=== PATIENT | female | born 1980 | race Caucasian/White ===

== ENCOUNTER 2016-12-23 11:35 | Emergency (ER) | payer OTHER ==
[2016-12-23 11:56] VITALS: BP 117/66; PULSE 109; TEMP 98.1; BMI 24.5
--- NOTE | 2016-12-23 12:39 | PDOC ---
History of Present Illness - General Chief Complaint: Lethargy Stated Complaint: INSOMNIA Time Seen by Provider: 12/23/16 12:24 - History of Present Illness Initial Comments: 12/23/16 12:38 CHIEF COMPLAINT: insomnia HISTORY OF PRESENT ILLNESS: 36 yo 7 month F with hx of insomnia, seen multiple times in this ER for insomnia and anxiet, [facility]. She reports that she hasn't been able to sleep for one week , nor has been able to eat well. She denies any pain, vomiting, fever, chills, shortness of breath, palpitations, or vaginal bleeding. She states "maybe I am stressed" and that's why she hasn't been able to sleep. She has not seen a therapist as previously advised. PAST MEDICAL HISTORY: Denies past medical history FAMILY HISTORY: Denies SOCIAL HISTORY: Denies tobacco, alcohol, illicit drug use. SURGICAL HISTORY: Denies ALLERGIES: No known drug allergies REVIEW OF SYSTEMS General/Constitutional: Denies fever or chills. Denies weakness, weight change. HEENT: Denies change in vision. Denies ear pain or discharge. Denies sore throat. Cardiovascular: Denies chest pain or shortness of breath. Respiratory: Denies cough, wheezing, or hemoptysis. Gastrointestinal: Denies nausea, vomiting, diarrhea or constipation. Denies rectal bleeding. Genitourinary: Denies dysuria, frequency, or change in urination. Musculoskeletal: Denies joint or muscle swelling or pain. Denies neck or back pain. Skin and breasts: Denies rash or easy bruising. Neurologic: Denies headache, vertigo, loss of consciousness, or loss of sensation. Psychiatric: Anxious, insomnia. PHYSICAL EXAM General Appearance: Well-appearing, appropriately dressed. No apparent distress. HEENT: EOMI, PERRLA. No conjunctival pallor. No photophobia, scleral icterus. Neck: Supple. Trachea midline. No tenderness, rigidity, carotid bruit, stridor , lymphadenopathy, or thyromegaly. Respiratory/Chest: Lungs CTAB. No shortness of breath, chest tenderness, respiratory distress, accessory muscle use. No crackles, rales, rhonchi, stridor , wheezing, dullness Cardiovascular: RRR. S1, S2. No JVD, murmur, bradycardia, tachycardia. Gastrointestinal/Abdominal: Normal bowel sounds. Abdomen soft, non-distended. No tenderness or rebound tenderness. No organomegaly, pulsatile mass, guarding , hernia, hepatomegaly, splenomegaly. Musculoskeletal/Extremities: Normal inspection. FROM of all extremities, normal capillary refill. Pelvis Stable. No CVA tenderness. No tenderness to extremities, pedal edema, swelling, erythema or deformity. Integumentary: Appropriate color, dry, warm. 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 Fully oriented, alert. Appropriate mood/affect. Motor strength 5/5. No appreciable EOM palsy, facial droop or sensory deficit. 12/23/16 13:13 Past History - Past Medical History Allergies/Adverse Reactions: Allergies Allergy/AdvReac Type Severity Reaction Status Date / Time No Known Allergies Allergy Verified 12/23/16 11:45 Home Medications: Ambulatory Orders Diphenhydramine HCl [Benadryl -] 25 mg PO HS PRN #20 capsule 12/23/16 Psychiatric Problems: Yes (ANXIETY) - Suicide/Smoking/Psychosocial Hx Smoking History: Never smoked Have you smoked in the past 12 months: No Hx Alcohol Use: No Drug/Substance Use Hx: No Substance Use Type: None *Physical Exam - Vital Signs Last Vital Signs Temp Pulse Resp BP Pulse Ox 98.1 F 109 H 18 117/66 100 12/23/16 11:46 12/23/16 11:46 12/23/16 11:46 12/23/16 11:46 12/23/16 11:46 Medical Decision Making - Medical Decision Making 12/23/16 13:16 36 yo 7 month F with hx of insomnia, seen multiple times in this ER for insomnia and anxiet, [facility] with insomnia. Discussed with patient that therapy is better treatment for insomnia and anxiety than medication - patient has previously requested Valium multiple times for insomnia but contraindicated in . Discussed with patient she may try Benadryl but she states she is concerned it won't work. Again advised patient that therapy is recommended. Patient states she has appointment with her party chief tomorrow. Advised patient to keep appointment with party chief and discuss concerns with her as well. PAtient verbalized understanding and agrees to plan. *DC/Admit/Observation/Transfer Diagnosis at time of Disposition: Insomnia Qualifiers: Insomnia type: unspecified Qualified Code(s): G47.00 - Insomnia, unspecified - Discharge Dispostion Disposition: HOME Condition at time of disposition: Stable Admit: No - Prescriptions Prescriptions: Diphenhydramine HCl [Benadryl -] 25 mg PO HS PRN #20 capsule PRN Reason: Insomnia - Referrals Referrals: Neetu Navarro [Other] Aaliyah Rich MD [Primary Care Provider] - Gabriela Akins [Other] - Patient Instructions Printed Discharge Instructions: DI for Insomnia, Treating Insomnia: A Look at Some Treatment Options Additional Instructions: Please take medication as prescribed. Please keep your appointment with Neetu Navarro tomorrow. I have given you a referral for a Urdu and Bahraini speaking therapist who specializes in insomnia; please give her a call to seek treatment. If you develop ANY pain, shortness of breath, bleeding, or you develop any thoughts of harming yourself or others, or if you develop ANY new or worsening symptoms, please return to the ER.
== END 2016-12-23 13:24 | disposition home or self-care (01) ==
LOC: JER 11:35 → JERFT 11:35
DX: O99.89 Other specified diseases and conditions complicating pregnancy, childbirth and the puerperium (principal); G47.00 Insomnia, unspecified; Z3A.28 28 weeks gestation of pregnancy
CPT/HCPCS: 99281-25

== ENCOUNTER 2017-02-27 08:35 | Inpatient (IN) | payer OTHER ==
[2017-02-27] MEDS: ELECTROLYTE-148 SOLN 1,000 ML IV SCH ×2 (09:00→10:40)
[2017-02-27] MEDS: FENTANYL/BUPIVACAINE/NS/PF - PCEA - 50 ML DISP.SYRIN EP SCH (09:35)
[2017-02-27 10:02] LABS: BASOPHIL 0.3 % (0-2.0); EOSINOPHIL 0.6 % (0-4.5); MCHC 33.8 g/dl (32.0-36.0); MEAN CELL VOLUME 94.6 fl (80-96); MEAN PLT VOLUME 9.1 fl (7.5-11.1); NEUTROPHILS 76.2 % (42.8-82.8); PLATELET COUNT 233 K/MM3 (134-434); RDW 13.3 % (11.6-15.6)
[2017-02-27 10:24] LABS: ANION GAP 9 (8-16); CALCIUM 9.5 mg/dL (8.5-10.1); CO2 26 mmol/L (21-32); CREATININE 0.6 mg/dL (0.55-1.02); GLUCOSE,RANDOM 95 mg/dL (74-106)
[2017-02-27 10:25] LABS: INR 0.98 (0.82-1.09); PROTHROMBIN TIME (PATIENT) 11.1 SEC (9.98-11.88)
[2017-02-27 10:28] LABS: ACTIVATED PTT 31.3 SECONDS (26.9-34.4)
--- NOTE | 2017-02-27 10:54 | HP ---
Past Medical History - Admission Chief Complaint: Labor pain History of Present Illness: 36 yo @ 39 weeks gestation, EDC 03/01/17, presents to L&D c/o labor pain. She denies any vaginal bleeding nor rupture of membrane. History Source: Patient Limitations to Obtaining History: No Limitations - Past Medical History ...: 2 ...Para: 1 - Past Surgical History Past Surgical History: Yes: None Hx Myomectomy: No Hx Transabdominal Cerclage: No - Smoking History Smoking history: Never smoked Have you smoked in the past 12 months: No - Alcohol/Substance Use Hx Alcohol Use: No History of Substance Use: reports: None Home Medications - Allergies Allergies/Adverse Reactions: Allergies Allergy/AdvReac Type Severity Reaction Status Date / Time No Known Allergies Allergy Verified 12/23/16 11:45 - Home Medications Home Medications: Ambulatory Orders Diphenhydramine HCl [Benadryl -] 25 mg PO HS PRN #20 capsule 12/23/16 Family Disease History - Family Disease History Family History: Unremarkable Review of Systems - Review of Systems Constitutional: reports: No Symptoms Eyes: reports: No Symptoms HENT: reports: No Symptoms Neck: reports: No Symptoms Cardiovascular: reports: No Symptoms Respiratory: reports: No Symptoms Gastrointestinal: reports: No Symptoms Genitourinary: reports: Pain Breasts: reports: No Symptoms Reported Musculoskeletal: reports: No Symptoms Integumentary: reports: No Symptoms Neurological: reports: No Symptoms Endocrine: reports: No Symptoms Hematology/Lymphatic: reports: No Symptoms Psychiatric: reports: No Symptoms Pain Intensity: 7 Physical Exam - Maternity Vital Signs: Vital Signs Temperature 98.4 F 02/27/17 10:00 Pulse Rate Respiratory Rate Blood Pressure O2 Sat by Pulse Oximetry (%) Constitutional: Yes: Well Nourished Eyes: Yes: Conjunctiva Clear HENT: Yes: Atraumatic Neck: Yes: Supple, Trachea Midline Cardiovascular: Yes: Regular Rate and Rhythm Lungs: Clear to auscultation - Abdominal Exam/OB Number of Fetuses: Single Presentation: Vertex Contractions: Yes - Physical Exam ...Motor Strength: WNL Psychiatric: Yes: Alert, Oriented - Labs Lab Results: CBC, BMP 02/27/17 09:15 02/27/17 09:15 Problem List - Problems (1) Pain during labor Code(s): O99.89 - OTH DISEASES AND CONDITIONS COMPL PREG/CHLDBRTH; R52 - PAIN, UNSPECIFIED Assessment/Plan Active labor Admit to L&D Epidural anesthesia Anticipate
[2017-02-27 11:32] VITALS: BMI 26.4
[2017-02-27] MEDS ORDERED: OXYTOCIN 15 UNITS/ LR 250 ML 15 UNIT/250 ML INFUS.BAG IV SCH (13:15)
--- NOTE | 2017-02-27 13:18 | PN ---
Progress Note (short form) - Note Progress Note: Patient seen and evaluated, she's comfortable after epidural anesthesia. FHR : Reassuring [place] : + irregular contractions VE : / -1 AROM clear A/P : Active labor Pitocin augmentation Anticipate Problem List - Problems (1) Pain during labor Code(s): O99.89 - OTH DISEASES AND CONDITIONS COMPL PREG/CHLDBRTH; R52 - PAIN, UNSPECIFIED
[2017-02-27] MEDS ORDERED: BISACODYL 10 MG SUPP.RECT RC PRN (15:27)
[2017-02-27] MEDS ORDERED: BENZOCAINE 20% 57 GM BOTTLE TP PRN (15:27)
[2017-02-27] MEDS ORDERED: IBUPROFEN 600 MG TABLET (FP) PO PRN (15:27)
[2017-02-27] MEDS ORDERED: WITCH HAZEL 50% (TUCKS) 40 PAD/JAR PAD TP PRN (15:27)
[2017-02-27] MEDS ORDERED: METHYLERGONOVINE MALEATE 0.2 MG/1 ML AMP IM PRN (15:27)
[2017-02-27] MEDS ORDERED: BENZOCAINE 28 GM HEMORRHOIDAL OINTMENT TP PRN (15:27)
--- NOTE | 2017-02-27 15:29 | PN ---
Delivery - Delivery Vaginal Delivery: Spontaneous Type of Anesthesia: Epidural Episiotomy/Laceration: None EBL (cc): 300 Delivery, Single - Feeding Plan Initial Plan: Elected not to breastfeed exclusively throughout hospitalization Remarks - Remarks Remarks: Normal spontaneous vaginal delivery of a live infant boy over intact perineum. Nose / Oropharynx suctioned @ perineum. Cord clamped and cut. Placenta expelled spontaneously intact.
[2017-02-27] MEDS ORDERED: OXYTOCIN 20 UNITS in 0.9% NS 20 UNIT/1,000 ML INFUS.BAG IV SCH (15:30)
[2017-02-27] MEDS: FERROUS SO4 325 MG TABLET (FP) PO SCH (19:04)
[2017-02-27] MEDS: ACETAMINOPHEN 325 MG TABLET (FP) PO PRN (20:42)
[2017-02-28 08:32] LABS: BASOPHIL 0.2 % (0-2.0); EOSINOPHIL 0.5 % (0-4.5); MCH 32.4 pg (25.7-33.7); MEAN CELL VOLUME 95.3 fl (80-96); MEAN PLT VOLUME 9.3 fl (7.5-11.1); NEUTROPHILS 80.4 % (42.8-82.8); PLATELET COUNT 201 K/MM3 (134-434); RDW 13.5 % (11.6-15.6); WHITE BLOOD COUNT 12.4 K/mm3 (4.0-10.0)
[2017-02-28] MEDS: FERROUS SO4 325 MG TABLET (FP) PO SCH ×3 (10:17→17:24)
[2017-02-28] MEDS: PRENATAL VITAMINS W/ FOLIC ACID TABLET (FP) PO SCH (10:17)
--- NOTE | 2017-02-28 14:28 | PN ---
Post Progress Note - Subjective Subjective: 36 yo Para 2 status post normal vaginal delivery, seen and evaluated. Doing well, no complaints. Post Day: 1 Type of Delivery: Vital Signs: Vital Signs Temperature 98.7 F 02/28/17 06:00 Pulse Rate 89 02/28/17 06:00 Respiratory Rate 18 02/28/17 06:00 Blood Pressure 105/62 02/28/17 06:00 O2 Sat by Pulse Oximetry (%) 100 02/27/17 16:15 Breast Exam: Yes: Soft Uterus: Yes: Fundus Firm Abdomen/GI: Yes: Abdomen soft, Tolerating PO Lochia: Yes: Rubra Lochia, amount: Moderate Extremities: Yes: Calves non-tender Perineum: Yes: Intact Activity: Ambulating - Labs Labs: CBC WBC 12.4 K/mm3 (4.0-10.0) H D 02/28/17 08:00 RBC 3.66 M/mm3 (3.60-5.2) 02/28/17 08:00 Hgb 11.9 GM/dL (10.7-15.3) D 02/28/17 08:00 Hct 34.9 % (32.4-45.2) 02/28/17 08:00 MCV 95.3 fl (80-96) 02/28/17 08:00 MCH 32.4 pg (25.7-33.7) 02/28/17 08:00 MCHC 34.0 g/dl (32.0-36.0) 02/28/17 08:00 RDW 13.5 % (11.6-15.6) 02/28/17 08:00 Plt Count 201 K/MM3 (134-434) 02/28/17 08:00 MPV 9.3 fl (7.5-11.1) 02/28/17 08:00 Neutrophils % 80.4 % (42.8-82.8) 02/28/17 08:00 Lymphocytes % 12.1 % (8-40) D 02/28/17 08:00 Monocytes % 6.8 % (3.8-10.2) 02/28/17 08:00 Eosinophils % 0.5 % (0-4.5) 02/28/17 08:00 Basophils % 0.2 % (0-2.0) 02/28/17 08:00 Problem List - Problems (1) Pain during labor Code(s): O99.89 - OTH DISEASES AND CONDITIONS COMPL PREG/CHLDBRTH; R52 - PAIN, UNSPECIFIED Assessment/Plan Status post vaginal delivery Stable ambulation Continue routine care
[2017-02-28] MEDS: FENTANYL/BUPIVACAINE/NS/PF - PCEA - 50 ML DISP.SYRIN EP SCH (19:32)
[2017-02-28] MEDS ORDERED: SENNOSIDES/DOCUSATE COMBO (SENNA PLUS) TABLET (UD) PO PRN (22:00)
--- NOTE | 2017-03-01 08:38 | DS ---
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: Vital Signs Temperature 98.9 F 02/28/17 22:00 Pulse Rate 91 H 02/28/17 22:00 Respiratory Rate 20 02/28/17 22:00 Blood Pressure 109/67 02/28/17 22:00 O2 Sat by Pulse Oximetry (%) 100 02/27/17 16:15 Constitutional: Yes: Well Nourished, No Distress, Calm Eyes: Yes: WNL, Conjunctiva Clear, EOM Intact HENT: Yes: WNL, Atraumatic, Normocephalic Neck: Yes: WNL, Supple, Trachea Midline Cardiovascular: Yes: WNL, Regular Rate and Rhythm Respiratory: Yes: WNL, Regular, CTA Bilaterally Gastrointestinal: Yes: WNL ...Rectal Exam: Yes: WNL Renal/: Yes: WNL ....Post : Yes: Uterus firm, Uterus non-tender, Slight lochia rubra Breast(s): Yes: WNL Musculoskeletal: Yes: WNL Extremities: Yes: WNL Edema: No Integumentary: Yes: WNL Neurological: Yes: WNL, Alert, Oriented ...Motor Strength: WNL Psychiatric: Yes: WNL, Alert, Oriented Labs: CBC, BMP 02/28/17 08:00 02/27/17 09:15 Delivery - Delivery Vaginal Delivery: Spontaneous Type of Anesthesia: Epidural Episiotomy/Laceration: None EBL (cc): 300 Delivery, Single - Stages of Labor Date 1st Stage Initiatied: 02/26/17 Time 1st Stage Initiated: 08:00 Date 2nd Stage Initiated: 02/27/17 Time 2nd Stage Initiated: 14:50 Date of Delivery: 02/27/17 Time of Delivery: 15:17 Time Placenta Delivered: 15:19 - 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: No Gender: Male Weight: 6 lb 7 oz Position: Right, OA Total Hours ROM (Hrs/Mins): 2hrs/9mins - 1 Minute Total Score: 9 5 Minutes Total Score: 9 - [place] Feeding Plan Initial Plan: Elected not to breastfeed exclusively throughout hospitalization Discharge Summary Reason For Visit: LABOR Current Active Problems Pain during labor (Acute) Status post normal vaginal delivery (Acute) Procedures: Principal: Condition: Good - Instructions Diet, Activity, Other Instructions: Regular diet No douching, no sexual intercourse x 6 weeks F/U in clinic in 6 weeks Disposition: HOME - Home Medications Comprehensive Discharge Medication List: Ambulatory Orders Vitamins (Sjr) - 1 tab PO DAILY 02/27/17
[2017-03-01] MEDS: PRENATAL VITAMINS W/ FOLIC ACID TABLET (FP) PO SCH (10:12)
[2017-03-01] MEDS: FERROUS SO4 325 MG TABLET (FP) PO SCH ×2 (10:12→13:15)
[2017-03-01] MEDS: ACETAMINOPHEN 325 MG TABLET (FP) PO PRN (10:15)
[2017-03-01 12:25] VITALS: BP 105/56; PULSE 85; TEMP 97.9
== END 2017-03-01 13:15 | disposition home or self-care (01) | DRG 560 ==
LOC: JLDR 08:35 → J3W 16:42
PROVIDERS: ADMIT Obstetrics & Gynecology; ATTEND Obstetrics & Gynecology
PROC: 10E0XZZ Delivery of Products of Conception, External Approach (ICD-10-PCS; principal; 2017-02-27)
DX: O80 Encounter for full-term uncomplicated delivery (principal); Z3A.39 39 weeks gestation of pregnancy; Z37.0 Single live birth
CPT/HCPCS: 36415; 59409; 80048; 85025; 85610; 85730; 86593; 86850; 86900; 86901

== ENCOUNTER 2019-05-22 18:08 | Emergency (ER) | payer OTHER ==
[2019-05-22 18:32] VITALS: BMI 24.1
[2019-05-22] MEDS ORDERED: KETOROLAC TROMETHAMINE 30 MG/1 ML VIAL IM ONE (21:05)
[2019-05-22] MEDS ORDERED: KETOROLAC TROMETHAMINE 30 MG/1 ML VIAL ONE (21:10)
[2019-05-22 21:44] LABS: HYALINE CASTS 0 /lpf (0-8); PH,URINE 6.5 (5.0-8.0); URINE APPEARANCE CLEAR; URINE BACTERIA 24.4 /hpf (NEGATIVE); URINE BILIRUBIN NEGATIVE (NEGATIVE); URINE COLOR YELLOW; URINE GLUCOSE (UA) NEGATIVE (NEGATIVE); URINE KETONE NEGATIVE (NEGATIVE); URINE LEUK ESTERASE NEGATIVE (NEGATIVE); URINE NITRITE NEGATIVE (NEGATIVE); URINE PROTEIN NEGATIVE (NEGATIVE); URINE RBC 14 /hpf (0-4); URINE UROBILINOGEN 0.2 mg/dL (0.2-1.0); URINE WBC 3 /hpf (0-5)
--- NOTE | 2019-05-22 22:11 | PDOC ---
History of Present Illness - General Chief Complaint: Pain Stated Complaint: ABD PAIN Time Seen by Provider: 05/22/19 20:13 History Source: Patient Exam Limitations: No Limitations Past History - Past Medical History Allergies/Adverse Reactions: Allergies Allergy/AdvReac Type Severity Reaction Status Date / Time No Known Allergies Allergy Verified 05/22/19 18:26 Home Medications: Ambulatory Orders NK [No Known Home Medication] 05/22/19 Asthma: No Cancer: No Cardiac Disorders: No COPD: No Diabetes: No HTN: No Psychiatric Problems: Yes (ANXIETY) Seizures: No Thyroid Disease: No - Psycho Social/Smoking Cessation Hx Smoking History: Never smoked Have you smoked in the past 12 months: No Hx Alcohol Use: No Drug/Substance Use Hx: No Substance Use Type: None Hx Substance Use Treatment: No *Physical Exam - Vital Signs Last Vital Signs Temp Pulse Resp BP Pulse Ox 98.2 F 94 H 20 118/58 L 97 05/22/19 18:29 05/22/19 18:29 05/22/19 18:29 05/22/19 18:29 05/22/19 18:29 - Physical Exam General Appearance: No: Apparent Distress Respiratory/Chest: positive: Lungs Clear, Normal Breath Sounds. negative: Respiratory Distress Cardiovascular: positive: Regular Rhythm, Regular Rate, S1, S2. negative: Murmur Gastrointestinal/Abdominal: positive: Normal Bowel Sounds, Soft. negative: Tender, Distended, Guarding, Rebound Musculoskeletal: negative: CVA Tenderness, CVA Tenderness (R), CVA Tenderness (L ), Muscle Spasm, Vertebral Tenderness Integumentary: positive: Normal Color Neurologic: positive: Alert ED Treatment Course - ADDITIONAL ORDERS Additional order review: Laboratory Results 05/22/19 05/22/19 21:10 21:10 Urine Color Yellow Urine Appearance Clear Urine pH 6.5 Ur Specific [place] 1.013 Urine Protein Negative Urine Glucose (UA) Negative Urine Ketones Negative Urine Blood 2+ H Urine Nitrite Negative Urine Bilirubin Negative Urine Urobilinogen 0.2 Ur Leukocyte Esterase Negative Urine WBC (Auto) 3 Urine RBC (Auto) 14 Urine Casts (Auto) 0 U Epithel Cells (Auto) 2.0 Urine Bacteria (Auto) 24.4 Urine HCG, Qual Negative - RADIOLOGY Radiology Studies Ordered: Category Date Time Status SPIRAL- RENAL-STONE CT [CT] Stat CT Scan 05/22/19 21:47 Taken - Medications Given in the ED: ED Medications Discontinued Medications Generic Name Dose Route Start Last Admin Trade Name Helga PRN Reason Stop Dose Admin Ketorolac Tromethamine 30 mg 05/22/19 21:05 05/22/19 21:22 Toradol Injection - IM 05/22/19 21:06 30 mg ONCE ONE Administration Medical Decision Making - Medical Decision Making 38-year-old female with no significant past medical history presents with a left lower back pain for 1 week. Back pain is worse with movement of her spine and cough. 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 Patient is concerned her symptoms may be due to a kidney infection as mentioned she had a kidney infection back in 2013. Her last period was 2 weeks ago. Denies fever, shortness of breath, chest pain, abdominal pain, nausea, vomiting, diarrhea, dysuria, hematuria. Denies any prior abdominal or pelvic surgeries Labs reviewed UCG negative Some blood in urine noted Given LNMP was 2 weeks ago, will send for CT A/P to r/o kidney stone Given Toradol for pain 05/22/19 22:[address] negative for any acute findings No evidence of any kidney stones Will refer patient to urology for further evaluation of blood in urine 05/22/19 22:40 Discharge - Discharge Information Problems reviewed: Yes Clinical Impression/Diagnosis: Back pain Qualifiers: Back pain location: low back pain Chronicity: acute Back pain laterality: left Sciatica presence: without sciatica Qualified Code(s): M54.5 - Low back pain Condition: Stable Disposition: HOME - Admission No - Additional Discharge Information Prescription Drug Monitoring Program (I-STOP) results: I-STOP not reviewed - Follow up/Referral Referrals: Mechelle Wang MD [Primary Care Provider] - 2 Days Uriel Mcconnell MD [Staff Physician] - - Patient Discharge Instructions Patient Printed Discharge Instructions: DI for Low Back Pain Additional Instructions: Thank you for choosing [facility]. It was a pleasure taking care of you. You do not have any evidence of urine infection or kidney infection There are no stones noted on your imaging There is some blood noted in your urine. For this you are referred to urology for further evaluation Your back pain may also be muscular in nature. For this you may take Motrin 600 mg every 6 hours as needed for pain. Return to the Emergency Department if your symptoms worsen or persist or have other concerning symptoms. Luly fox el [facility]. Fue un placer cuidar de ti. No tiene evidencia de infeccin urinaria o infeccin renal. No se observan clculos en condon imagen. Se observa algo de yasmin en condon orina. Para esto, se lo deriva a urologa para leticia evaluacin adicional [place] dolor de espalda tambin puede ser de naturaleza muscular. Para esto, puede luisa Motrin 600 mg cada 6 horas segn sea necesario para el dolor. Regrese al departamento de emergencias si compa sntomas empeoran o persisten o si tiene otros sntomas preocupantes. Print Language: [id number] - Post Discharge Activity
[2019-05-22 22:54] VITALS: BP 103/61; PULSE 73; TEMP 98.1
== END 2019-05-22 22:54 | disposition home or self-care (01) ==
LOC: JER 18:08
PROC: 3E0233Z Introduction of Anti-inflammatory into Muscle, Percutaneous Approach (ICD-10-PCS; principal; 2019-05-22)
DX: M54.5 Low back pain (principal); F41.9 Anxiety disorder, unspecified
CPT/HCPCS: 74176-TC; 81003; 84703; 87086; 99285-25

== ENCOUNTER 2023-08-04 10:53 | Emergency (ER) | payer OTHER ==
[2023-08-04 10:59] VITALS: BP 110/62; PULSE 83; RESP 18; TEMP 97.5; BMI 24.5
[2023-08-04] MEDS ORDERED: METHOCARBAMOL 500 MG TABLET ONE (11:39)
[2023-08-04] MEDS ORDERED: KETOROLAC TROMETHAMINE 30 MG/1 ML VIAL ONE (11:39)
[2023-08-04] MEDS: METHOCARBAMOL 500 MG TABLET PO ONE (11:43)
[2023-08-04] MEDS: KETOROLAC TROMETHAMINE 30 MG/1 ML VIAL IM ONE (11:43)
== END 2023-08-04 13:01 | disposition home or self-care (01) ==
LOC: JERFT 10:53
PROC: 3E023GC Introduction of Other Therapeutic Substance into Muscle, Percutaneous Approach (ICD-10-PCS; principal; 2023-08-04)
DX: M54.6 Pain in thoracic spine (principal); M25.511 Pain in right shoulder; M25.512 Pain in left shoulder; R07.9 Chest pain, unspecified; V43.52XA Car driver injured in collision with other type car in traffic accident, initial encounter
CPT/HCPCS: 71046-TC-FY; 71111-TC-FY; 99284-25